=== PATIENT | male | born 1955 | race Caucasian/White ===

== ENCOUNTER → 2018-07-16 | Outpatient (CLI) | payer BC ==
[2018-07-16 14:35] LABS: Basophils # (A) 0.1 k/uL (0-0.2); Basophils % (A) 1 %; Eosinophils # (A) 0.1 k/uL (0-0.7); Eosinophils % (A) 1 %; HCT 44.7 % (39.0-53.0); HGB 14.1 gm/dL (13.0-17.5); Lymphocytes # (A) 1.8 k/uL (1.0-4.8); Lymphocytes % (A) 14 %; MCH 29.8 pg (25.0-35.0); MCHC 31.6 g/dL (31.0-37.0); MCV 94.5 fL (80.0-100.0); Mean Platelet Volume 6.4; Monocytes # (A) 0.6 k/uL (0-1.0); Monocytes % (A) 5 %; Neutrophils # (A) 9.7 k/uL (1.3-7.7); Neutrophils % (A) 79 %; Platelet Count 365 k/uL (150-450); RBC 4.73 m/uL (4.30-5.90); RDW 12.8 % (11.5-15.5); WBC 12.3 k/uL (3.8-10.6)
[2018-07-16 18:24] LABS: ALT 27 U/L (10-49); AST 20 U/L (14-35); Alkaline Phosphatase 61 U/L (41-126); C Reactive Protein <0.4 mg/dL (0.0-0.8); Carbon Dioxide 24.6 mmol/L (21.6-31.8); Chloride 102 mmol/L (96-109); Globulin 2.4 g/dL (1.6-3.3); Glucose 124 mg/dL (70-110); Potassium 4.3 mmol/L (3.5-5.5); Sodium 140 mmol/L (135-145); Total Bilirubin 0.5 mg/dL (0.3-1.2); Total Protein 7.2 g/dL (6.2-8.2)
[2018-07-16 18:34] LABS: Folate, Serum 22.1 ng/mL
[2018-07-16 19:28] LABS: Erythrocyte Sedimentation Rate 13 mm/hr (0-15)
== END | disposition home or self-care (01) ==
LOC: LABWHC1 13:17
PROVIDERS: ATTEND Internal Medicine Infectious Disease
DX: M86.9 Osteomyelitis, unspecified (principal); G62.9 Polyneuropathy, unspecified
CPT/HCPCS: 36415; 80053; 82607; 82746; 85025; 85652; 86038; 86140

== ENCOUNTER 2018-08-19 14:41 | Emergency (ER) | payer BC ==
[2018-08-19 14:48] VITALS: BP 152/82; PULSE 91; RESP 18; TEMP 97.9
[2018-08-19] MEDS ORDERED: MORPHINE SULFATE 2 MG/ML SYRINGE IM ONE (15:04)
--- NOTE | 2018-08-19 15:10 | ED ---
ENT HPI - General Chief complaint: Dental/Oral Stated complaint: Dental pain Time Seen by Provider: 08/19/18 14:52 Source: patient, RN notes reviewed Mode of arrival: ambulatory Limitations: no limitations - History of Present Illness Initial comments: 62-year-old male presents emergency Department with chief complaint of dental pain. Patient states that he had scraping of his bone by a specialist today. Patient states that the lidocaine has worn off and states it is in extreme pain. Patient had issues with pain recently from this infection he has been placed on multiple medications. Patient was advised to MRSA from for pain medications. Patient denies taking them so far for. He did admit that he took some Suboxone yesterday. Patient has also been prescribed Percocet. And Toradol by Raul. - Related Data Home Medications Medication Instructions Recorded Confirmed Amoxic-Pot Clav 875-125Mg 1 tab PO BID 08/19/18 08/19/18 [Augmentin 875-125] Ketorolac [Toradol] 10 mg PO Q6HR 08/19/18 08/19/18 Rosuvastatin [Crestor] 20 mg PO HS 08/19/18 08/19/18 Allergies Allergy/AdvReac Type Severity Reaction Status Date / Time No Known Allergies Allergy Verified 08/19/18 14:48 Review of Systems ROS Statement: Those systems with pertinent positive or pertinent negative responses have been documented in the HPI. ROS Other: All systems not noted in ROS Statement are negative. Past Medical History Past Medical History: Hyperlipidemia Additional Past Medical History / Comment(s): OSTEOMYELITIS -JAW History of Any Multi-Drug Resistant Organisms: None Reported Past Surgical History: Hernia Repair, Tonsillectomy Additional Past Surgical History / Comment(s): RIGHT AND LEFT INGUINAL HERNIA REPAIR , PILONIDAL CYST SURGERY Past Anesthesia/Blood Transfusion Reactions: No Reported Reaction Past Psychological History: Anxiety Smoking Status: Former smoker - Past Family History Mother Family Medical History: Cancer Additional Family Medical History / Comment(s): COLON CANCER Father Family Medical History: Cancer Additional Family Medical History / Comment(s): SKIN CANCER General Exam Limitations: no limitations General appearance: alert, in no apparent distress Head exam: Present: atraumatic, normocephalic, normal inspection Eye exam: Present: normal appearance, PERRL, EOMI. Absent: scleral icterus, conjunctival injection, periorbital swelling ENT exam: Present: mucous membranes moist, TM's normal bilaterally, normal external ear exam (prior extraction no active bleeding, no lesions). Absent: normal oropharynx Neck exam: Present: normal inspection, full ROM. Absent: tenderness, meningismus, lymphadenopathy Respiratory exam: Present: normal lung sounds bilaterally. Absent: respiratory distress, wheezes, rales, rhonchi, stridor Cardiovascular Exam: Present: regular rate, normal rhythm, normal heart sounds. Absent: systolic murmur, diastolic murmur, rubs, gallop, clicks Course Vital Signs 08/19/18 14:45 Temperature 97.9 F Pulse Rate 91 Respiratory 18 Rate Blood Pressure 152/82 O2 Sat by Pulse 98 Oximetry Medical Decision Making - Medical Decision Making 62-year-old male presented for dental pain. Patient is advised to take his narcotic pain meds at home as directed. Did warn him that he took Suboxone yesterday which may lower the efficacy of his pain meds. Patient follow-up with his dentist. Return parameters were discussed. Disposition Clinical Impression: Pain, dental Disposition: HOME SELF-CARE Condition: Stable Instructions (If sedation given, give patient instructions): Toothache (ED) Additional Instructions: Take your Percocet as directed. Please return to the Emergency Department if symptoms worsen or any other concerns. Is patient prescribed a controlled substance at d/c from ED?: No Referrals: Jimi Hermosillo MD [Primary Care Provider] - 1-2 days Time of Disposition: 15:10
== END 2018-08-19 15:23 | disposition home or self-care (01) ==
LOC: EC 14:41
DX: K08.89 Other specified disorders of teeth and supporting structures (principal); E78.5 Hyperlipidemia, unspecified; Z87.891 Personal history of nicotine dependence; Z79.1 Long term (current) use of non-steroidal anti-inflammatories (NSAID); Z79.899 Other long term (current) drug therapy
CPT/HCPCS: 99282; 96372; J2270

== ENCOUNTER → 2018-08-20 | Day surgery (SDC) | payer BC ==
[2018-08-19 13:33] VITALS: BMI 25.5
[~2018-08-20] MED LIST: LIDOCAINE 1% INJ 10MG/ML (20 ML MDV) ONE; LIDOCAINE 1% INJ 10MG/ML (20 ML MDV) SQ ONE
[2018-08-20 14:14] VITALS: BP 145/76; PULSE 93; RESP 18; TEMP 98
--- NOTE | 2018-08-20 15:48 | IR ---
EXAMINATION TYPE: IR cvc insert >=5 years DATE OF EXAM: 08/20/2018 COMPARISON: NONE CLINICAL HISTORY: Infection Needs long-term intravenous access for antibiotics. PROCEDURE: After informed consent, the skin overlying the left basilic vein was localized with ultrasound and no chriss to be compressible and patent. An ultrasound image was obtained and submitted on the patient's c coronado. The overlying skin was prepped and draped and Lidocaine was used for local anesthesia. A skin mika was made with a scalpel. Access was gained to the vein under ultrasound guidance with a 21 gau ge needle and a 0.018 inch wire was advanced. Access site was dilated with Peel-Away sheath and cath eter tailored to the appropriate length and advanced such that the distal tip is at the cavoatrial ju nction. Spot image was obtained verifying placement. Catheter was fixed to the skin and a sterile d ressing was placed following hemostasis. Catheter was aspirated and flushed with saline. Patient wa s discharged in stable condition without complication. Maximal barrier technique is utilized. Ultras ound image is documented on the chart. Ultrasound used with sterile technique. Fluoro time and fluoroscopic images submitted to document procedure: 0.1 minutes fluoroscopy time, 14 3 intraoperative C-arm images document the procedure IMPRESSION: STATUS POST ULTRASOUND AND FLUOROSCOPIC GUIDED PICC LINE PLACEMENT, READY FOR USE. THIS PROCEDURE WAS PERFORMED BY THE UNDERSIGNED.
== END ==
LOC: CATHCVL 13:41
PROVIDERS: ATTEND Radiology Diagnostic Radiology
DX: M86.9 Osteomyelitis, unspecified (principal); M27.2 Inflammatory conditions of jaws
CPT/HCPCS: 36573; C1751; C1769; J2001

== ENCOUNTER → 2019-08-10 | Day surgery (SDC) | payer BC ==
[2019-08-05 16:08] VITALS: BMI 26.6
[~2019-08-10] MED LIST changes: -LIDOCAINE 1% INJ 10MG/ML (20 ML MDV) ONE; -LIDOCAINE 1% INJ 10MG/ML (20 ML MDV) SQ ONE; +SODIUM CHLORIDE 0.9% 1,000 ML IV SCH
[2019-08-10 11:34] VITALS: BP 139/74; PULSE 58; RESP 18; TEMP 97.8
--- NOTE | 2019-08-10 18:10 | P.PCN ---
Preoperative Diagnosis: Diagnosis Recurrent dizzy spells with blurred vision Twelve-lead ECG shows sinus rhythm with normal ST segments no delta waves epsilon waves normal QT interval Tilt table test per protocol Baseline heart rate 52 beats a minute Baseline blood pressure 137/75 mmHg Patient was tilted upright or regular 70 per protocol There was no evidence for neurocardiogenic syncope Normal heart rate and blood pressure response to upright tilting Impression Normal 12-lead ECG Normal heart rate and blood pressure response to upright tilting
== END ==
LOC: CATHEP 10:51
PROVIDERS: ATTEND Internal Medicine Clinical Cardiac Electrophysiology
DX: R42 Dizziness and giddiness (principal); H53.8 Other visual disturbances; E78.2 Mixed hyperlipidemia; M19.90 Unspecified osteoarthritis, unspecified site; Z79.899 Other long term (current) drug therapy; Z98.890 Other specified postprocedural states; Z87.891 Personal history of nicotine dependence; Z80.8 Family history of malignant neoplasm of other organs or systems; Z82.49 Family history of ischemic heart disease and other diseases of the circulatory system; Z80.0 Family history of malignant neoplasm of digestive organs
CPT/HCPCS: 93005; 93660

== ENCOUNTER → 2022-06-04 | Outpatient (CLI) | payer MEDICARE ==
--- NOTE | 2022-06-04 07:59 | US ---
EXAMINATION TYPE: US duplex aorta DATE OF EXAM: 06/04/2022 COMPARISON: CT 2012 CLINICAL HISTORY: [id number] FAMILY HISTORY OF ISCHEMIC HEART DISEASE. Screening TECHNIQUE: Multiple sonographic images of the abdominal aorta are obtained. FINDINGS: EXAM MEASUREMENTS: Abdominal Aorta: Proximal: 1.9 x 1.8 cm Mid: 1.4 x 1.7 cm Distal: 1.2 x 1.2 cm Bifurcation: RODDY: 1.2 x 1.1 cm DUSTY: 1.1 x 1.0 cm VEGETABLE II FARMWORKER NOTES: No evidence of AAA IMPRESSION: No evidence of aortic abdominal aneurysm.
--- NOTE | 2022-06-04 08:46 | XR ---
EXAMINATION TYPE: XR Hip Limited RT DATE OF EXAM: 06/04/2022 CLINICAL HISTORY: pain TECHNIQUE: AP and frogleg views of the right hip are obtained. COMPARISON: None. FINDINGS: There is no acute fracture/dislocation evident. The joint space appears moderately narro wed. The overlying soft tissue appears unremarkable. IMPRESSION: 1. There is no acute fracture or dislocation. ICD 10 NO FRACTURE, INITIAL EVALUATION
--- NOTE | 2022-06-04 09:21 | CTL ---
EXAMINATION TYPE: CT Low Dose Lung DATE OF EXAM ORDERED: 06/04/2022 COMPARISON: None HISTORY: . Low Dose CT Lung Screening CT DLP: 110.[address] CTDI: 3.20 mGy IV CONTRAST USED: None. SCREENING VISIT: First visit COMPARISON: None. TECHNIQUE: Low dose computed tomography scan was performed through the chest at 1 millimeter thick se ctions and reconstructed images in the coronal plane at [address] DIAGNOSTIC QUALITY: Satisfactory FINDINGS: LUNG NODULES: Not presentLeft lung: no nodules identified.Right lung: no nodules identified. LUNGS: COPD: Severity: None Fibrosis: Severity:None Lymph nodes: None Other findings: None RIGHT PLEURAL SPACE: Effusion: None Calcification: None Thickening: None Pneumothorax: None LEFT PLEURAL SPACE: Effusion: None Calcification: None Thickening: None Pneumothorax: None HEART: Heart Size: Mildly enlarged Coronary calcification: Mild Pericardial effusion: None OTHER FINDINGS: Upper abdomen: Uncomplicated cholelithiasis. Bony thorax: Degenerative changes Supraclavicular region: No significant abnormality Other: No significant abnormalityI IMPRESSION: No pulmonary nodularity seen. FOLLOW UP CT CHEST RECOMMENDATION: Follow-up screening in one year CT LUNG RAD: negative category 1
--- NOTE | 2022-06-04 09:51 | CT ---
EXAMINATION TYPE: CT heart w calcium score DATE OF EXAM: 06/04/2022 COMPARISON: None HISTORY: Screening for cardiovascular disorder. 213.9 CT DLP: 82.9 mGycm Automated exposure control for dose reduction was used. CT CALCIUM SCORING Coronary calcium is a marker for plaque (fatty deposits) in a blood vessel or atherosclerosis (harden ing of the arteries). The presence and amount of calcium detected in a coronary artery by the CT sca n, indicates the presence and amount of atherosclerotic plaque. These calcium deposits appear years before the development of heart disease symptoms such as chest pain and shortness of breath. A calcium score is computed for each of the coronary arteries based upon the volume and density of th e calcium deposits. This can be referred to as your calcified plaque burden. It does not correspond directly to the percentage of narrowing in the artery but does correlate with the severity of the un derlying coronary atherosclerosis. PROCEDURE TECHNIQUE - Prospective Gating was used. Slice thickness: 3mm. Density threshold (HU): 130, Pixel threshold: 3, Algorithm: discrete. RESULTS Region: LM Calcium Score ([place]): 92.76 Volume (mm3): 28.16 Mass (g): 84.47 Region: RCA Calcium Score ([place]): 177.05 Volume (mm3): 47.3 Mass (g): 141.9 Region: LAD Calcium Score ([place]): 137.29 Volume (mm3): 111.53 Mass (g): 37.18 Region: CX Calcium Score ([place]): Volume (mm3): Mass (g): Region: PDA Calcium Score ([place]): Volume (mm3): Mass (g): Total: Calcium Score ([place]): 407.1 Volume (mm3): 337.9 Mass (g): 112.63 TOTAL CALCIUM SCORE: 337.9 IMPRESSION: Calcium Score: 337.9 Implication: Extensive atherosclerotic plaque Risk of Coronary Artery Disease: High likelihood of at least one significant coronary narrowing CALCIUM SCORE IMPLICATION RISK OF C ORONARY ARTERY DISEASE 0 No identifiable plaque Very low, generally less than 5% 1-10 Minimal identifiable plaque Very unlikely, less than 10% 11-100 Definite, at least mild atherosclerotic plaque Mild or m inimal coronary narrowings likely 101-400 Definite, at least moderate atherosclerotic plaque Mild coronary ar louise disease highly likely, significant narrowing possible 401 or Higher Extensive atherosclerotic plaque High lik elihood of at least one significant coronary narrowing
== END | disposition home or self-care (01) ==
LOC: RADUSWWP 07:21
PROVIDERS: ATTEND Family Medicine
DX: Z12.2 Encounter for screening for malignant neoplasm of respiratory organs (principal); I25.10 Atherosclerotic heart disease of native coronary artery without angina pectoris; M25.551 Pain in right hip; Z82.49 Family history of ischemic heart disease and other diseases of the circulatory system; Z87.891 Personal history of nicotine dependence
CPT/HCPCS: 71271; 73501; 75571; 93005; 93979

== ENCOUNTER → 2022-07-18 | Outpatient (CLI) | payer MEDICARE ==
--- NOTE | 2022-07-19 10:03 | CA ---
Transthoracic Echo Report Name: Bimal Srivastava Age: 66 Gender: M : 1955 Exam Date: 07/18/2022 15:48 Exam Location: [facility] Ht (in): 67 Wt (lb): 175 Ordering Physician: Anand Valdes DO Attending/Referring Phys: Love Flores Recruiting And Selection Consultant Chanel Nolan RDCS Procedure CPT: Indications: Z82.49 FAMILY HX OF ISCHEM HEART DIS AND OTH DIS O Cardiac Hx: Technical Quality: Fair Contrast 1: Total Dose (mL): Contrast 2: Total Dose (mL): MEASUREMENTS (Male / Female) Normal Values 2D ECHO LV Diastolic Diameter PLAX 3.0 cm 4.2 - 5.9 / 3.9 - 5.3 cm LV Systolic Diameter PLAX 1.7 cm IVS Diastolic Thickness 1.4 cm 0.6 - 1.0 / 0.6 - 0.9 cm LVPW Diastolic Thickness 1.4 cm 0.6 - 1.0 / 0.6 - 0.9 cm LV Relative Wall Thickness 0.9 RV Internal Dim ED PLAX 3.3 cm LA Volume 47.6 cm??? 18 - 58 / 22 - 52 cm??? M-MODE Aortic Root Diameter MM 3.3 cm LA Systolic Diameter MM 2.9 cm LA Ao Ratio MM 0.9 AV Cusp Separation MM 2.1 cm DOPPLER AV Peak Velocity 140.1 cm/s AV Peak Gradient 7.8 mmHg LVOT Peak Velocity 108.0 cm/s LVOT Peak Gradient 4.7 mmHg MV Area PHT 3.0 cm??? Mitral E Point Velocity 73.6 cm/s Mitral A Point Velocity 79.0 cm/s Mitral E to A Ratio 0.9 MV Deceleration Time 250.2 ms TR Peak Velocity 255.0 cm/s TR Peak Gradient 26.0 mmHg Right Ventricular Systolic Press 30.2 mmHg FINDINGS Left Ventricle Mildly increased septal wall thickness. Normal left ventricular systolic function with no obvious regional wall motion abnormalities. Left ventricular cavity size normal. Normal left ventricular diastolic filling pattern. Left ventricular ejection fraction is estimated at 55-60 %. Right Ventricle Normal right ventricular size and function. Right ventricular systolic pressure within normal limits. Right Atrium Normal right atrial size. Left Atrium Normal left atrial size. Mitral Valve Structurally normal mitral valve. Mild mitral annular calcification. No mitral stenosis, regurgitation or prolapse. Aortic Valve No aortic valve stenosis or regurgitation. Tricuspid Valve Structurally normal tricuspid valve. Mild tricuspid regurgitation. Pulmonic Valve Trace pulmonic regurgitation. Pericardium No pericardial effusion. Aorta Normal size aortic root and proximal ascending aorta. CONCLUSIONS Normal LV function Technically suboptimal study Previewed by: Dr. Tirso Styles MD (Electronically Signed) Final Date: 19 July 2022 10:02
== END | disposition home or self-care (01) ==
LOC: RADECHMAIN 15:32
PROVIDERS: ATTEND Family Medicine
DX: Z82.49 Family history of ischemic heart disease and other diseases of the circulatory system (principal)
CPT/HCPCS: 93306

== ENCOUNTER → 2023-01-31 | Outpatient (CLI) | payer MEDICARE ==
--- NOTE | 2023-02-07 15:30 | MR ---
EXAMINATION TYPE: MR hip RT wo con DATE OF EXAM: 01/31/2023 COMPARISON: Radiograph 06/04/2022 HISTORY: 67-year-old male M25.551, Right hip pain x 1 year. TECHNIQUE: Multiplanar, multisequence images of the right hip were obtained without IV contrast. FINDINGS: The bilateral rectus femoris and hamstring origins as well as the iliopsoas insertions appear intact. There is a trace effusion within the left subclavian mediastinum and bursa. Otherwise, the bilateral gluteal insertions appear intact. There is asymmetric mild to moderate degenerative change of the right hip with prominent marginal spu rring and some irregular cartilage thinning. Aside from minimal subchondral cystic change along the p osterior femoral head neck junction, no significant degenerative subchondral marrow signal changes ar e identified at this time. [id number] right hip joint effusion, slightly larger from the contralateral side. There is no evidence for hip fracture or AVN. There is some degenerative signal within the superior labrum. No para labral cyst is seen. The sacrum and SI joints appear intact. No suspicious bone marrow replacement. Normal course, caliber, and signal intensity of the sciatic nerves. The prostate gland is borderline in size at 4.0 cm. Moderate circumferential bladder wall thickening may reflect chronic bladder hypertrophy related clinically. No abnormal fluid collection in pelvis or pelvic lymphadenopathy. IMPRESSION: 1. [id number] right hip OA. A small to moderate right hip joint effusion slightly more than the contralateral side is likely reactive. Degenerative appearance to the superior labrum. 2. No evidence for hip fracture or AVN or other discrete abnormality. 3. Moderate circumferential bladder wall thickening may be chronic for the patient. Correlate to excl ude cystitis.
== END | disposition home or self-care (01) ==
LOC: RADMRIMAIN 10:01
PROVIDERS: ATTEND Family Medicine
DX: M16.11 Unilateral primary osteoarthritis, right hip (principal); M25.451 Effusion, right hip; N32.89 Other specified disorders of bladder

== ENCOUNTER → 2023-11-20 | Outpatient (CLI) | payer MEDICARE ==
--- NOTE | 2023-11-20 22:47 | CTL ---
EXAMINATION TYPE: CT Low Dose Lung DATE OF EXAM ORDERED: 11/20/2023 HISTORY: 67-year-old male former smoker, 36 pack-year history. Lung cancer screening. Z12.2,Z87.891 NICOTINE DEPENDENCE, CIGARETTES, [facility] CT DLP: 87.[address] CTDI: 2.3 mGy Automated exposure control for dose reduction was used. SCREENING VISIT: Annual follow-up COMPARISON: 06/04/2022 TECHNIQUE: Low dose computed tomography scan was performed through the chest at 1 mm thick sections a nd reconstructed images in multiple planes at 1 mm and [address] DIAGNOSTIC QUALITY: Satisfactory FINDINGS: Heart upper limits of normal in size without pericardial effusion. Scattered three-vessel coronary ar louise calcifications are present. Mild ectasia ascending aorta 3.7 cm with mild atherosclerotic arch calcifications and conventional in tracerebral branching anatomy. Scattered nonenlarged mediastinal lymph nodes. No thoracic lymphadenopathy by CT size criteria. Borderline enlarged caliber to the main right and left pulmonary arteries measuring up to 2.6 cm may be seen in the setting of pulmonary arterial hypertension. Stable strandy scarring in the bilateral mid and lower lungs. Mild diffuse bronchial wall thickening. Minimal biapical pleural parenchymal scarring. No consolidation or pleural effusion. No suspicious pulmonary nodule is seen. Visualized upper abdomen shows a palpable gallstones measuring up to 6 mm. Bones: DISH throughout the mid and lower thoracic spine. IMPRESSION: 1. Lung RADS 1, negative. No suspicious pulmonary nodules. 2. Stable strandy scarring in the mid and lower lungs. Mild bronchial wall thickening may be seen wit h bronchitis or chronic asthma. 3. Incidental: Cholelithiasis and DISH mid and lower thoracic spine. CT LUNG RAD AND CT CHEST RECOMMENDATION: Lung-Rad 1 Negative: Continue annual screening with LDCT in 12 months. S Modifier (other clinically significant findings): None
== END | disposition home or self-care (01) ==
LOC: RADCTMAIN 15:04
PROVIDERS: ATTEND Family Medicine
DX: Z12.2 Encounter for screening for malignant neoplasm of respiratory organs (principal); J98.4 Other disorders of lung; J98.09 Other diseases of bronchus, not elsewhere classified; Z87.891 Personal history of nicotine dependence
CPT/HCPCS: 71271

== ENCOUNTER → 2023-12-24 | Outpatient (CLI) | payer MEDICARE ==
--- NOTE | 2023-12-24 14:57 | US ---
EXAMINATION TYPE: US groin RT DATE OF EXAM: 12/24/2023 COMPARISON: NONE CLINICAL INDICATION: Male, 68 years old with history of R10.9 UNSPECIFIED ABDOMINAL PAIN; Pain in rig ht groin x 1 month. Hx right hernia surgery x 30 years ago. TECHNIQUE: Scanned right groin with multiple grayscale and color Doppler ultrasound images. FINDINGS/IMPRESSION: Hypoechoic area with hyperechoic center seen in the right groin measuring 1.8 x 1.9 x 0.5 cm. This is consistent with a benign lymph node. No abdominal wall defect seen to suggest hernia at this time by ultrasound. If there is continued cli nical concern, consider further evaluation with CT abdomen pelvis.
== END | disposition home or self-care (01) ==
LOC: RADUSWWP 14:03
PROVIDERS: ATTEND Family Medicine
DX: R10.9 Unspecified abdominal pain (principal)